=== PATIENT | male | born 1975 | race Caucasian/White ===

== ENCOUNTER 2018-06-25 08:21 | Emergency (ER) | payer MEDICAID ==
[~2018-06-25] VITALS: Ht 165.1 cm; Wt 96.2 kg
[2018-06-25 09:49] LABS: microscopic required? NO
[2018-06-25 10:04] LABS: UA SPECIFIC GRAVITY 1.025 (1.005-1.035); urine erythrocyte NEGATIVE (NEGATIVE)
[2018-06-25 11:12] VITALS: BP 131/87
== END 2018-06-25 11:12 | disposition home or self-care (01) ==
LOC: ED 08:21
PROVIDERS: Emergency Medicine
DX: S23.3XXA Sprain of ligaments of thoracic spine, initial encounter (principal); V69.9XXA Occupant (driver) (passenger) of heavy transport vehicle injured in unspecified traffic accident, initial encounter; Y93.I9 Activity, other involving external motion; Y92.488 Other paved roadways as the place of occurrence of the external cause; Y99.8 Other external cause status

== ENCOUNTER 2019-07-02 12:21 | Emergency (ER) | payer BC ==
[~2019-07-02] VITALS: Ht 162.6 cm; Wt 97.5 kg
[2019-07-02 12:26] VITALS: Ht 162.6 cm; Wt 97.5 kg
[2019-07-02 14:08] LABS: BASOPHIL % 0.3 % (0-2); PLATELET COUNT 232 x10^3mcL (130-400); RED CELL DISTRIBUTION WIDTH 13.1 % (11.5-14.5)
[2019-07-02 14:13] LABS: CALCIUM 8.3 mg/dL (8.5-10.1); CARBON DIOXIDE 26.2 mmol/L (21-32); CHLORIDE SERUM 107 mmol/L (98-107); CREATININE SERUM 1.2 mg/dL (0.7-1.3); GFR1 > 60 mL/min; GLUCOSE SERUM 104 mg/dL (74-106); POTASSIUM SERUM 4.3 mmol/L (3.5-5.1); SODIUM SERUM 142 mmol/L (136-145)
[2019-07-02 14:18] LABS: ALBUMIN 3.5 g/dL (3.4-5.0); ALKALINE PHOSPHATASE 116 U/L (46-116); ALT/SGPT 35 U/L (16-63); AST/SGOT 11 U/L (15-37); BILIRUBIN TOTAL 0.54 mg/dL (0.20-1.00); TOTAL PROTEIN, SERUM 7.4 g/dL (6.4-8.2)
[2019-07-02 14:34] LABS: AMPHETAMINE QUAL UR NONE DETECTED (See below)
[2019-07-02 15:44] VITALS: BP 133/86
== END 2019-07-02 16:24 | disposition home or self-care (01) ==
LOC: ED 12:21
PROVIDERS: Emergency Medicine
DX: R04.0 Epistaxis (principal); R42 Dizziness and giddiness
CPT/HCPCS: 36415